=== PATIENT | female | born 1990 | race American Indian/Alaskan Native ===

== ENCOUNTER 2018-10-16 18:08 | Emergency (ER) | payer SELFPAY ==
--- NOTE | 2018-10-16 18:14 | Emergency Department Report ---
Blank Doc - Documentation Documentation: This is a 28-year-old female that presents with nausea vomiting and abdominal pain. This initial assessment/diagnostic orders/clinical plan/treatment(s) is/are subject to change based on patient's health status, clinical progression and re- assessment by fellow clinical providers in the ED. Further treatment and workup at subsequent clinical providers discretion. Patient/guardians urged not to elope from the ED as their condition may be serious if not clinically assessed and managed. Initial orders include: 1- Patient sent to [facility] for further evaluation and treatment 2- labs 3- UA
[2018-10-16 18:15] VITALS: BP 113/83
[2018-10-16] MEDS ORDERED: ZOFRAN IV ONE (19:17)
[2018-10-16] MEDS ORDERED: NACL 0.9% 1000 ML 1,000 ML IV ONE (19:17)
[2018-10-16] MEDS ORDERED: MORPHINE IV ONE (19:17)
[2018-10-16 19:38] LABS: Basophils % (Auto) 0.6 % (0.0-1.8); Eosinophils % (Auto) 0.7 % (0.0-4.3); Hematocrit 39.2 % (30.3-42.9); Hemoglobin 13.1 gm/dl (10.1-14.3); Lymphocytes # (Auto) 1.6 K/mm3 (1.2-5.4); Lymphocytes % (Auto) 23.1 % (13.4-35.0); Mean Corpuscular HGB Conc 33 % (30-34); Mean Corpuscular Volume 81 fl (79-97); Monocytes # (Auto) 0.3 K/mm3 (0.0-0.8); Monocytes % (Auto) 4.1 % (0.0-7.3); Platelet Count 278 K/mm3 (140-440); Red Blood Count 4.86 M/mm3 (3.65-5.03); Red Cell Distribution Width 14.3 % (13.2-15.2)
[2018-10-16 19:45] LABS: Albumin 3.8 g/dL (3.9-5); BUN/Creatinine Ratio 30; Blood Urea Nitrogen 12 mg/dL (7-17); Calcium 8.9 mg/dL (8.4-10.2); Hemolysis Index 100
[2018-10-16 19:53] LABS: Alanine Aminotransferase 7 units/L (7-56)
[2018-10-16 21:01] LABS: Bilirubin,Urine NEG (Negative); Blood,Urine LG (Negative); Color,Urine Yellow (Yellow); Mucus,Urine 3+ /HPF; RBC,Urine > 182.0 /HPF (0.0-6.0)
[2018-10-16] MEDS ORDERED: TORADOL IV ONE (21:16)
[2018-10-16] MEDS ORDERED: PEPCID IV ONE (21:16)
--- NOTE | 2018-10-16 22:22 | Cat Scan Report ---
CT ABDOMEN AND PELVIS WITH CONTRAST INDICATION / CLINICAL INFORMATION: abdominal pain AND VOMITING . TECHNIQUE: Axial CT images were obtained through the abdomen and pelvis after 100 mL Omnipaque [address] scans at this location are performed using CT dose reduction for ALARA by means of automated exposure control. COMPARISON: None available. FINDINGS: LOWER CHEST: No significant abnormality. LIVER: No significant abnormality. GALLBLADDER: No significant abnormality. BILE DUCTS: No significant abnormality. PANCREAS: No significant abnormality. SPLEEN: No significant abnormality. ADRENALS: No significant abnormality. RIGHT KIDNEY and URETER: No significant abnormality. LEFT KIDNEY and URETER: No significant abnormality. STOMACH and SMALL BOWEL: No significant abnormality. COLON: No significant abnormality. APPENDIX: No significant abnormality. PERITONEUM: Trace free fluid in the pelvis may be physiologic in this young female patient. No free a ir. No fluid collection. LYMPH NODES: No significant adenopathy. AORTA and ARTERIES: No significant abnormality. IVC and VEINS: No significant abnormality. URINARY BLADDER: No significant abnormality. REPRODUCTIVE ORGANS: No significant abnormality. ADDITIONAL FINDINGS: None. SKELETAL SYSTEM: No significant abnormality. IMPRESSION: 1. No inflammatory process or bowel obstruction. 2. Trace free fluid in the pelvis may be physiologic in this young female patient. Signer Name: Hanna Zamora MD Signed: 10/16/2018 10:18 PM Workstation Name: [id number]
--- NOTE | 2018-10-16 23:16 | Emergency Department Report ---
ED Abdominal Pain HPI - General Chief Complaint: Abdominal Pain Stated Complaint: ABD PAIN Time Seen by Provider: 10/16/18 18:13 Source: patient, EMS Mode of arrival: Ambulatory Limitations: No Limitations - History of Present Illness Initial Comments: Patient is a 28-year-old female with no past medical history presents to the ED with complaint of acute onset persistent of diffuse abdominal pain that radiates to the lower abdomen diffusely for the last 12 months with nausea and vomiting. Patient denies diarrhea, fever, chills, chest pain, dysuria, urinary frequency and urgency, vaginal discharge, low back pain, dizziness, lightheadedness, syncope, shortness of breath, sore throat or headache. Patient states that she has not been able to keep anything down since down to the symptoms and suspect that this may be from the food that she ate over 24 hours ago. MD Complaint: abdominal pain, other (nausea and vomiting) -: Sudden, hour(s) (12) Location: diffuse, suprapubic Radiation: suprapubic Migration to: no migration Severity: severe Severity scale (0 -10): 7 Quality: cramping, aching, sharp Consistency: constant Improves With: nothing Worsens With: nothing Context: possible food poisoning Associated Symptoms: denies other symptoms, nausea, vomiting, anorexia. denies: diarrhea, fever, chills, constipation, dysuria, hematemesis, hematochezia, melena, hematuria, syncope - Related Data LMP Date: 10/13/18 LMP (females 10-50): this week Previous Rx's Medication Instructions Recorded Last Taken Type Dicyclomine [Bentyl] 20 mg PO Q6H PRN #24 tablet 10/16/18 Unknown Rx Ketorolac [Toradol] 10 mg PO Q8H PRN #20 tablet 10/16/18 Unknown Rx Ondansetron [Zofran Odt] 4 mg PO Q6H PRN #20 tab.rapdis 10/16/18 Unknown Rx raNITIdine HCl [Zantac] 150 mg PO Q12H #30 tablet 10/16/18 Unknown Rx Allergies Allergy/AdvReac Type Severity Reaction Status Date / Time Sulfa (Sulfonamide Allergy Swelling Verified 10/16/18 18:10 Antibiotics) ED Review of Systems ROS: Stated complaint: ABD PAIN Other details as noted in HPI Constitutional: denies: chills, fever Eyes: denies: eye pain, eye discharge, vision change ENT: denies: ear pain, throat pain Respiratory: denies: cough, shortness of breath, wheezing Cardiovascular: denies: chest pain, palpitations Endocrine: no symptoms reported Gastrointestinal: abdominal pain, nausea, vomiting. denies: diarrhea Genitourinary: denies: urgency, dysuria, discharge Musculoskeletal: denies: back pain, joint swelling, arthralgia Skin: denies: rash, lesions Neurological: denies: headache, weakness, paresthesias Psychiatric: denies: anxiety, depression Hematological/Lymphatic: denies: easy bleeding, easy bruising ED Past Medical Hx - Past Medical History Previous Medical History?: Yes Hx Asthma: Yes - Surgical History Past Surgical History?: Yes Additional Surgical History: T&A - Social History Smoking Status: Never Smoker Substance Use Type: None - Medications Home Medications: Home Medications Medication Instructions Recorded Confirmed Last Taken Type Dicyclomine [Bentyl] 20 mg PO Q6H PRN #24 tablet 10/16/18 Unknown Rx Ketorolac [Toradol] 10 mg PO Q8H PRN #20 tablet 10/16/18 Unknown Rx Ondansetron [Zofran Odt] 4 mg PO Q6H PRN #20 tab.rapdis 10/16/18 Unknown Rx raNITIdine HCl [Zantac] 150 mg PO Q12H #30 tablet 10/16/18 Unknown Rx ED Physical Exam - General Limitations: No Limitations General appearance: alert, in no apparent distress - Head Head exam: Present: atraumatic, normocephalic, normal inspection - Eye Eye exam: Present: normal appearance, PERRL, EOMI. Absent: scleral icterus, conjunctival injection, nystagmus Pupils: Present: normal accommodation - ENT ENT exam: Present: normal exam, normal orophraynx, mucous membranes moist, TM's normal bilaterally, normal external ear exam - Neck Neck exam: Present: normal inspection, full ROM. Absent: tenderness, lymphadeno jinny, thyromegaly - Respiratory Respiratory exam: Present: normal lung sounds bilaterally. Absent: respiratory distress, wheezes, rales, stridor, chest wall tenderness, accessory muscle use - Cardiovascular Cardiovascular Exam: Present: regular rate, normal rhythm, normal heart sounds. Absent: systolic murmur, diastolic murmur, rubs, gallop - GI/Abdominal GI/Abdominal exam: Present: soft, tenderness (diffuse), normal bowel sounds. Absent: guarding, rebound, hyperactive bowel sounds, hypoactive bowel sounds, organomegaly, mass, hernia - Rectal Rectal exam: Present: deferred - Extremities Exam Extremities exam: Present: normal inspection, full ROM, normal capillary refill - Back Exam Back exam: Present: normal inspection, full ROM. Absent: CVA tenderness (L), muscle spasm, paraspinal tenderness, vertebral tenderness - Neurological Exam Neurological exam: Present: alert, oriented X3, CN II-XII intact, normal gait, reflexes normal - Psychiatric Psychiatric exam: Present: normal affect, normal mood - Skin Skin exam: Present: warm, dry, intact, normal color. Absent: rash ED Course Vital Signs 10/16/18 18:13 Temperature 98.5 F Pulse Rate 89 Respiratory 16 Rate Blood Pressure 113/83 O2 Sat by Pulse 98 Oximetry - Reevaluation(s) Reevaluation #1: 10/16/18 23:23 The patient is a 28-year-old female who presented to the ED with nausea, vomiting and abdominal pain for 12 hours intermittently. In the ED, patient is alert and oriented 3 and is not in distress with normal vital signs. Lab test results are reviewed and are all unremarkable. Abdominal pelvic CT scan with contrast also shows no acute GI or pelvis pathology. Patient was treated in the ED for nausea and vomiting, also treated for pain and also given normal saline 1 L IV bolus fluids. On reevaluation, patient's pain and nausea and vomiting are well-controlled with medications. Patient was advised to maintain a clear liquid diet for 12-24 hours. Patient was discharged home on medications and advised to follow-up with her primary care physician in 5-7 days for reevaluation. Patient was also advised to return to the ED immediately if symptoms get worse. ED Medical Decision Making - Lab Data Result diagrams: 10/16/18 19:08 10/16/18 19:08 - Radiology Data Radiology results: report reviewed, image reviewed Findings [facility] [address] [place] [address] Cat Scan Report Signed Patient: LORENA ROGERS Miguel Angel#: [id number] : 1990 Acct:[id number] Age/Sex: 28 / F ADM Date: 10/16/18 Loc: ED Attending Dr: Ordering Physician: TAHIR MILIAN Date of Service: 10/16/18 Procedure(s): CT abdomen pelvis w con Accession Number(s): [id number] cc: TAHIR MILIAN CT ABDOMEN AND PELVIS WITH CONTRAST INDICATION / CLINICAL INFORMATION: abdominal pain AND VOMITING . TECHNIQUE: Axial CT images were obtained through the abdomen and pelvis after 100 mL Omnipaque [address] scans at this location are performed using CT dose reduction for ALARA by means of automated exposure control. COMPARISON: None available. FINDINGS: LOWER CHEST: No significant abnormality. LIVER: No significant abnormality. GALLBLADDER: No significant abnormality. BILE DUCTS: No significant abnormality. PANCREAS: No significant abnormality. SPLEEN: No significant abnormality. ADRENALS: No significant abnormality. RIGHT KIDNEY and URETER: No significant abnormality. LEFT KIDNEY and URETER: No significant abnormality. STOMACH and SMALL BOWEL: No significant abnormality. COLON: No significant abnormality. APPENDIX: No significant abnormality. PERITONEUM: Trace free fluid in the pelvis may be physiologic in this young female patient. No free air. No fluid collection. LYMPH NODES: No significant adenopathy. AORTA and ARTERIES: No significant abnormality. IVC and VEINS: No significant abnormality. URINARY BLADDER: No significant abnormality. REPRODUCTIVE ORGANS: No significant abnormality. ADDITIONAL FINDINGS: None. SKELETAL SYSTEM: No significant abnormality. IMPRESSION: 1. No inflammatory process or bowel obstruction. 2. Trace free fluid in the pelvis may be physiologic in this young female patient. Signer Name: Hanna Zamora MD Signed: 10/16/2018 10:18 PM Workstation Name: [id number] Transcribed By: DT Dictated By: Chalo Zamora MD Electronically Authenticated By: Chalo Zamora MD Signed Date/Time: 10/16/18 2218 - Medical Decision Making The patient is a 28-year-old female who presented to the ED with nausea, vomiting and abdominal pain for 12 hours intermittently. In the ED, patient is alert and oriented 3 and is not in distress with normal vital signs. Lab test results are reviewed and are all unremarkable. Abdominal pelvic CT scan with contrast also shows no acute GI or pelvis pathology. Patient was treated in the ED for nausea and vomiting, also treated for pain and also given normal saline 1 L IV bolus fluids. On reevaluation, patient's pain and nausea and vomiting are well-controlled with medications. Patient was advised to maintain a clear liquid diet for 12-24 hours. Patient was discharged home on medications and advised to follow-up with her primary care physician in 5-7 days for reevaluation. Patient was also advised to return to the ED immediately if symptoms get worse. - Differential Diagnosis Abdominal pain, nausea and vomiting, Gastroenteritis Critical care attestation.: If time is entered above; I have spent that time in minutes in the direct care of this critically ill patient, excluding procedure time. ED Disposition Clinical Impression: Nausea and vomiting in adult, Gastroenteritis Abdominal pain Qualifiers: Abdominal location: generalized Qualified Code(s): R10.84 - Generalized abdominal pain Disposition: TO HOME OR SELFCARE Is pt being admited?: No Does the pt Need Aspirin: No Condition: Stable Instructions: Gastroenteritis (ED), Acute Nausea and Vomiting (ED), Abdominal Pain (ED) Additional Instructions: Maintain a clear liquid diet for the next 12-24 hours. Take medications with food, drink plenty of fluids and follow-up with your primary care physician in 5-7 days for reevaluation. Return to the ED immediately if symptoms get worse. Prescriptions: Dicyclomine [Bentyl] 20 mg PO Q6H PRN #24 tablet PRN Reason: Pain , Severe (7-10) Ketorolac [Toradol] 10 mg PO Q8H PRN #20 tablet PRN Reason: Pain raNITIdine HCl [Zantac] 150 mg PO Q12H #30 tablet Ondansetron [Zofran Odt] 4 mg PO Q6H PRN #20 tab.rapdis PRN Reason: Nausea Referrals: [facility] [Outside] - 3-5 Days Time of Disposition: 23:13 Print Language: [place] CITIZEN
== END 2018-10-16 23:31 | disposition home or self-care (01) ==
LOC: ED 18:08
DX: K52.9 Noninfective gastroenteritis and colitis, unspecified (principal); R11.2 Nausea with vomiting, unspecified; J45.909 Unspecified asthma, uncomplicated; Z88.5 Allergy status to narcotic agent; Z79.899 Other long term (current) drug therapy
CPT/HCPCS: 36415; 74177; 80053; 81001; 83690; 84703; 85025; 96361; 96374; 96375; 99284; J1885; J2270; J2405; J7030; Q9967

== ENCOUNTER 2019-05-14 02:10 | Emergency (ER) | payer SELFPAY ==
[2019-05-14 02:44] VITALS: BP 151/90
[2019-05-14] MEDS ORDERED: oxyCODONE /ACETAMINOPHEN 5-325MG TAB PO ONE (05:42)
[2019-05-14] MEDS ORDERED: ONDANSETRON 4 MG/2 ML INJ IV ONE (05:42)
[2019-05-14] MEDS ORDERED: dexAMETHasone 20 MG/5 ML VIAL IV ONE (05:42)
[2019-05-14 06:02] LABS: Basophils % (Auto) 0.5 % (0.0-1.8); Eosinophils # (Auto) 0.2 K/mm3 (0.0-0.4); Hematocrit 36.9 % (30.3-42.9); Lymphocytes # (Auto) 2.3 K/mm3 (1.2-5.4); Mean Corpuscular HGB Conc 33 % (30-34); Mean Corpuscular Volume 81 fl (79-97); Monocytes # (Auto) 0.5 K/mm3 (0.0-0.8); Monocytes % (Auto) 6.9 % (0.0-7.3); Platelet Count 291 K/mm3 (140-440); Red Blood Count 4.57 M/mm3 (3.65-5.03); Red Cell Distribution Width 13.6 % (13.2-15.2)
[2019-05-14 06:23] LABS: Alanine Aminotransferase 10 units/L (7-56); Albumin 4.3 g/dL (3.9-5); BUN/Creatinine Ratio 28; Blood Urea Nitrogen 14 mg/dL (7-17); Calcium 9.7 mg/dL (8.4-10.2); Hemolysis Index 3
[2019-05-14] MEDS: DOXYCYCLINE 100 MG TAB PO ONE ×2 (07:04→07:08)
--- NOTE | 2019-05-14 07:15 | Emergency Department Report ---
ED General Adult HPI - General Chief complaint: Skin Rash Stated complaint: RED MOURA ON BOTH LEGS STINGS AND RAY Source: patient Mode of arrival: Ambulatory Limitations: No Limitations - History of Present Illness Initial comments: Patient is a 29 yo AA female with no past medical history who presents to the ED with c/o acute onset persistent severe painful swollen erythematous rash on lower legs bilaterally for the last 2 days. Patient denies fall, traumatic injury, insect bites, nausea, vomiting, fever, chills, numbness and tingling or weakness of lower extremities bilaterally, dizziness, chest pain or shortness of breath. MD Complaint: Bilateral lower leg pain; erythematous rash on lower legs -: Sudden, days(s) (2) Location: lower extremity (bilateral) Radiation: non-radiation Severity scale (0 -10): 10 Quality: aching, sharp Consistency: constant Improves with: none Worsens with: movement Associated Symptoms: denies other symptoms, rash (Erythematous maculopapular rash with painful swollen rash on lower legs). denies: confusion, chest pain, cough, diaphoresis, fever/chills, headaches, loss of appetite, malaise, nausea/vomiting, shortness of breath Treatments Prior to Arrival: none - Related Data Previous Rx's Medication Instructions Recorded Last Taken Type Dicyclomine [Bentyl] 20 mg PO Q6H PRN #24 tablet 10/16/18 Unknown Rx Ketorolac [Toradol] 10 mg PO Q8H PRN #20 tablet 10/16/18 Unknown Rx Ondansetron [Zofran Odt] 4 mg PO Q6H PRN #20 tab.rapdis 10/16/18 Unknown Rx raNITIdine HCl [Zantac] 150 mg PO Q12H #30 tablet 10/16/18 Unknown Rx Benzonatate [Tessalon Perles] 100 mg PO Q8HR #21 capsule 12/05/18 Unknown Rx Cetirizine HCl [Allergy Relief] 10 mg PO QDAY #15 capsule 12/05/18 Unknown Rx Fluticasone [Flonase] 1 spray NS QDAY #1 bottle 12/05/18 Unknown Rx Acetaminophen/Codeine [Tylenol 1 tab PO Q6H PRN #12 tab 05/14/19 Unknown Rx /Codeine # 3 tab] Clindamycin [Clindamycin CAP] 300 mg PO Q6HR #80 capsule 05/14/19 Unknown Rx Doxycycline Hyclate 100 mg PO Q12H #20 tablet. 05/14/19 Unknown Rx Ibuprofen [Motrin 800 MG tab] 800 mg PO Q8HR PRN #30 tablet 05/14/19 Unknown Rx Ondansetron [Zofran Odt] 4 mg PO Q6HR PRN #20 tab.rapdis 05/14/19 Unknown Rx Allergies Allergy/AdvReac Type Severity Reaction Status Date / Time Sulfa (Sulfonamide Allergy Swelling Verified 10/16/18 18:10 Antibiotics) ED Review of Systems ROS: Stated complaint: RED MOURA ON BOTH LEGS STINGS AND RAY Other details as noted in HPI Constitutional: denies: chills, fever Eyes: denies: eye pain, eye discharge, vision change ENT: denies: ear pain, throat pain Respiratory: denies: cough, shortness of breath, wheezing Cardiovascular: denies: chest pain, palpitations Endocrine: no symptoms reported Gastrointestinal: denies: abdominal pain, nausea, diarrhea Genitourinary: denies: urgency, dysuria, discharge Musculoskeletal: arthralgia (Mild painful lower extremity bilaterally). denies: back pain, joint swelling Skin: rash (Erythematous maculopapular nonfluctuant rashes on lower legs bilaterally), change in color (Erythematous). denies: lesions Neurological: denies: headache, weakness, paresthesias Psychiatric: denies: anxiety, depression Hematological/Lymphatic: denies: easy bleeding, easy bruising ED Past Medical Hx - Past Medical History Previous Medical History?: Yes Hx Asthma: Yes - Surgical History Past Surgical History?: Yes Additional Surgical History: T&A - Social History Smoking Status: Never Smoker - Medications Home Medications: Home Medications Medication Instructions Recorded Confirmed Last Taken Type Dicyclomine [Bentyl] 20 mg PO Q6H PRN #24 tablet 10/16/18 Unknown Rx Ketorolac [Toradol] 10 mg PO Q8H PRN #20 tablet 10/16/18 Unknown Rx Ondansetron [Zofran Odt] 4 mg PO Q6H PRN #20 tab.rapdis 10/16/18 Unknown Rx raNITIdine HCl [Zantac] 150 mg PO Q12H #30 tablet 10/16/18 Unknown Rx Benzonatate [Tessalon Perles] 100 mg PO Q8HR #21 capsule 12/05/18 Unknown Rx Cetirizine HCl [Allergy Relief] 10 mg PO QDAY #15 capsule 12/05/18 Unknown Rx Fluticasone [Flonase] 1 spray NS QDAY #1 bottle 12/05/18 Unknown Rx Acetaminophen/Codeine [Tylenol 1 tab PO Q6H PRN #12 tab 05/14/19 Unknown Rx /Codeine # 3 tab] Clindamycin [Clindamycin CAP] 300 mg PO Q6HR #80 capsule 05/14/19 Unknown Rx Doxycycline Hyclate 100 mg PO Q12H #20 tablet.dr 05/14/19 Unknown Rx Ibuprofen [Motrin 800 MG tab] 800 mg PO Q8HR PRN #30 tablet 05/14/19 Unknown Rx Ondansetron [Zofran Odt] 4 mg PO Q6HR PRN #20 tab.rapdis 05/14/19 Unknown Rx ED Physical Exam - General Limitations: No Limitations General appearance: alert, in no apparent distress - Head Head exam: Present: atraumatic, normocephalic, normal inspection - Eye Eye exam: Present: normal appearance, PERRL, EOMI Pupils: Present: normal accommodation - ENT ENT exam: Present: normal exam, normal orophraynx, mucous membranes moist, TM's normal bilaterally, normal external ear exam - Neck Neck exam: Present: normal inspection, full ROM - Respiratory Respiratory exam: Present: normal lung sounds bilaterally. Absent: respiratory distress, wheezes, rales, rhonchi, chest wall tenderness, accessory muscle use - Cardiovascular Cardiovascular Exam: Present: regular rate, normal rhythm, normal heart sounds. Absent: systolic murmur, diastolic murmur, rubs, gallop - GI/Abdominal GI/Abdominal exam: Present: soft, normal bowel sounds. Absent: tenderness, rebound, hyperactive bowel sounds - Extremities Exam Extremities exam: Present: normal inspection, full ROM, tenderness (Palpable diffuse lower leg tenderness with erythematous maculopapular rash and mild swelling), normal capillary refill - Back Exam Back exam: Present: normal inspection, full ROM. Absent: tenderness, CVA tenderness (R), muscle spasm, paraspinal tenderness, vertebral tenderness - Neurological Exam Neurological exam: Present: alert, oriented X3, CN II-XII intact, normal gait, reflexes normal - Psychiatric Psychiatric exam: Present: normal affect, normal mood - Skin Skin exam: Present: warm, dry, intact, normal color, rash (Erythematous maculopapular nonfluctuant rash on lower extremities bilaterally with mild tenderness and swelling), erythema ED Course Vital Signs 05/14/19 02:26 Temperature 98.4 F Pulse Rate 87 Respiratory 16 Rate Blood Pressure 151/90 O2 Sat by Pulse 99 Oximetry ED Medical Decision Making - Lab Data Result diagrams: 05/14/19 05:44 05/14/19 05:44 - Medical Decision Making Patient is a 29 yo AA female who presents to the ED with c/o acute onset persistent painful swollen erythematous rash on lower extremities bilaterally for the last 2 days, worse in the last 2 days. In the ED patient is alert and oriented x 3 and is in no acute distress. Patient was treated for pain, and lab test results were reviewed and are nonactionable. Patient was also treated with Clindamycin and Doxycycline. On reevaluation, patient felt better after treatment. Patient was discharged home on pain medications and oral antibiotics and advised to follow up with her PCP in 7-10 days for reevaluation. Patient was also advised to return to the ED immediately if symptoms get worse. - Differential Diagnosis cellulitis; muscle strain; insect bites; allergic reaction Critical care attestation.: If time is entered above; I have spent that time in minutes in the direct care of this critically ill patient, excluding procedure time. ED Disposition Clinical Impression: Cellulitis of both lower extremities, Lower extremity pain, bilateral Disposition: [id number] TO HOME OR SELFCARE Is pt being admited?: No Does the pt Need Aspirin: No Condition: Stable Instructions: Arthralgia (ED), Cellulitis (ED) Additional Instructions: Take medications with food, drink plenty of fluids and follow-up with your primary care physician in 5 to 7 days for reevaluation. Return to the ED immediately if symptoms get worse. Prescriptions: Clindamycin [Clindamycin CAP] 300 mg PO Q6HR #80 capsule Doxycycline Hyclate 100 mg PO Q12H #20 tablet. Ibuprofen [Motrin 800 MG tab] 800 mg PO Q8HR PRN #30 tablet PRN Reason: Pain , Severe (7-10) Acetaminophen/Codeine [Tylenol /Codeine # 3 tab] 1 tab PO Q6H PRN #12 tab PRN Reason: Pain , Severe (7-10) Ondansetron [Zofran Odt] 4 mg PO Q6HR PRN #20 tab.rapdis PRN Reason: Nausea Referrals: ANTHONY ADORNO MD [Staff Physician] - 7-10 days Forms: Work/School Release Form(ED) Time of Disposition: 07:12 Print Language: LITHUAN[place]
== END 2019-05-14 07:54 | disposition home or self-care (01) ==
LOC: ED 02:10
DX: L03.116 Cellulitis of left lower limb (principal); L03.115 Cellulitis of right lower limb; J45.909 Unspecified asthma, uncomplicated; Z88.2 Allergy status to sulfonamides; Z79.899 Other long term (current) drug therapy; Z98.890 Other specified postprocedural states
CPT/HCPCS: 36415; 80053; 82140; 85025; 96365; 96375; 99284; J1100; J2405

== ENCOUNTER 2019-10-07 19:26 | Emergency (ER) | payer SELFPAY ==
[2019-10-07 19:47] VITALS: BP 136/80
[2019-10-07] MEDS ORDERED: oxyCODONE /ACETAMINOPHEN 5-325MG TAB PO ONE (20:53)
[2019-10-07] MEDS ORDERED: ONDANSETRON 4 MG ODT TAB PO STA (20:53)
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
== END 2019-10-07 21:56 | disposition home or self-care (01) ==
LOC: ED 19:26
DX: R51 Headache (principal); I10 Essential (primary) hypertension; Z98.890 Other specified postprocedural states; Z79.1 Long term (current) use of non-steroidal anti-inflammatories (NSAID); Z79.2 Long term (current) use of antibiotics; Z79.899 Other long term (current) drug therapy; Z88.2 Allergy status to sulfonamides; V49.59XA Passenger injured in collision with other motor vehicles in traffic accident, initial encounter; Y93.89 Activity, other specified; Y92.410 Unspecified street and highway as the place of occurrence of the external cause; Y99.8 Other external cause status
CPT/HCPCS: 99282; Q0162

== ENCOUNTER 2019-12-26 22:03 | Emergency (ER) | payer SELFPAY ==
[2019-12-26 22:12] VITALS: BP 144/91
--- NOTE | 2019-12-27 01:19 | Emergency Department Report ---
Minor Respiratory - HPI Chief Complaint: Dyspnea/Respdistress Stated Complaint: COUGH, SORE THROAT Time Seen by Provider: 12/27/19 01:14 Duration: 3 Days Pain Location: Throat, Nose Severity: moderate Minor Respiratory: Yes Rhinorrhea, Yes Sore Throat, Yes Able to Tolerate Fluids, Yes Cough, No Ear Pain, No Sick Contacts, No Hemoptysis, No Chest Pain, No Shortness of Breath, No Fever Other History: The patient was evaluated in the emergency department for symptoms described in the history of present illness. He/she was evaluated in the context of the global COVID-19 pandemic, which necessitated consideration that the patient might be at risk for infection with the virus that causes COVID-19. Institutional protocols and algorithms that pertain to the evaluation of patients at risk for COVID-19 are in a state of rapid change based on information released by regulatory bodies including the CDC and federal and state organizations. These policies and algorithms were followed during the patient's care in the emergency department. Please note that these policies, procedures and recommendations changed on a rapid basis. 29-year-old obese female presents to the emergency room for intermittent sore throat, cough nasal congestion runny nose x3 days. Patient last took some [id number] Tylenol approximately 9 AM. Patient denies any fever chills no nausea no vomiting no shortness of breath headache or abdominal pain. Patient denies any past medical history currently takes no medications on a daily basis and is allergic to sulfa medications. ED Review of Systems ROS: Stated complaint: COUGH, SORE THROAT Other details as noted in HPI Comment: All other systems reviewed and negative ED Past Medical Hx - Past Medical History Previous Medical History?: Yes Hx Asthma: Yes - Surgical History Past Surgical History?: Yes Additional Surgical History: T&A - Social History Smoking Status: Never Smoker Substance Use Type: None - Medications Home Medications: Home Medications Medication Instructions Recorded Confirmed Last Taken Type Dicyclomine [Bentyl] 20 mg PO Q6H PRN #24 tablet 10/16/18 Unknown Rx Ketorolac [Toradol] 10 mg PO Q8H PRN #20 tablet 10/16/18 Unknown Rx Ondansetron [Zofran Odt] 4 mg PO Q6H PRN #20 tab.rapdis 10/16/18 Unknown Rx raNITIdine HCL [Zantac] 150 mg PO Q12H #30 tablet 10/16/18 Unknown Rx Benzonatate [Tessalon Perles] 100 mg PO Q8HR #21 capsule 12/05/18 Unknown Rx Cetirizine HCl [Allergy Relief] 10 mg PO QDAY #15 capsule 12/05/18 Unknown Rx Fluticasone [Flonase] 1 spray NS QDAY #1 bottle 12/05/18 Unknown Rx Acetaminophen/Codeine [Tylenol 1 tab PO Q6H PRN #12 tab 05/14/19 Unknown Rx /Codeine # 3 tab] Clindamycin [Clindamycin CAP] 300 mg PO Q6HR #80 capsule 05/14/19 Unknown Rx Doxycycline Hyclate 100 mg PO Q12H #20 tablet.dr 05/14/19 Unknown Rx Ibuprofen [Motrin 800 MG tab] 800 mg PO Q8HR PRN #30 tablet 05/14/19 Unknown Rx Ondansetron [Zofran Odt] 4 mg PO Q6HR PRN #20 tab.rapdis 05/14/19 Unknown Rx methOCARBAMOL [Robaxin TAB] 750 mg PO Q8H PRN #20 tablet 10/07/19 Unknown Rx traMADoL [Ultram] 50 mg PO Q6HR PRN #14 tablet 10/07/19 Unknown Rx Minor Respiratory Exam - Exam General: Vital signs noted. No distress. Alert and acting appropriately. HEENT: Yes Moist Mucous Membranes, No Pharyngeal Erythema, No Pharyngeal Exudates, No Rhinorrhea, No Conjuctival Injection, No Frontal Tenderness, No Maxillary Tenderness Neck: Yes Supple, No Adenopathy Lungs: Yes Good Air Exchange, Yes Cough, No Wheezes, No Ronchi, No Stridor, No Labored Respirations, No Retractions, No Use of Accessory Muscles, No Other Abnormal Lung Sounds Heart: Yes Regular, No Murmur Abdomen: Yes Normal Bowel Sounds, No Tenderness, No Peritoneal Signs Skin: No Rash, No Edema Neurologic: Alert and oriented, no deficits. Musculoskeletal: Unremarkable. ED Course Vital Signs 12/26/19 12/26/19 22:08 22:11 Temperature 98.3 F Pulse Rate 92 H Respiratory 18 Rate Blood Pressure 144/91 O2 Sat by Pulse 95 Oximetry ED Medical Decision Making - Medical Decision Making 29-year-old obese female presents to the emergency room for intermittent sore throat, cough nasal congestion runny nose x3 days. Patient last took some [id number] Tylenol approximately 9 AM. Patient denies any fever chills no nausea no vomiting no shortness of breath headache or abdominal pain. Patient denies any past medical history currently takes no medications on a daily basis and is allergic to sulfa medications. Patient symptoms are very common for allergic rhinitis. I discussed with patient she can take [id number] cetirizine use [id number] Flonase she can take cough drops and Robitussin. She can also use [id number] ibuprofen for sore throat. She needs to increase her fluid intake. Critical care attestation.: If time is entered above; I have spent that time in minutes in the direct care of this critically ill patient, excluding procedure time. ED Disposition Clinical Impression: Allergic rhinitis Disposition: DC-01 TO HOME OR SELFCARE Is pt being admited?: No Does the pt Need Aspirin: No Condition: Stable Instructions: Allergic Rhinitis (ED) Additional Instructions: Recommend [id number]-[id number] Zyrtec/cetirizine and Flonase or Nasacort. Ibuprofen or Tylenol for pain management. Try taking Robitussin or cough drops. Increase your fluid intake advance your diet as tolerated and follow-up with a primary care provider if his symptoms persist or gets worse. Referrals: PRIMARY CARE, [Primary Care Provider] - 3-5 Days [facility] [Provider Group] - 3-5 Days Forms: Work/School Release Form(ED)
== END 2019-12-27 02:02 | disposition home or self-care (01) ==
LOC: ED 22:03
DX: J30.89 Other allergic rhinitis (principal)
CPT/HCPCS: 99282